=== PATIENT | female | born 1985 | race Caucasian/White ===

== ENCOUNTER 2017-06-17 14:06 | Emergency (ER) | payer OTHER ==
[~2017-06-17] VITALS: Ht 154.9 cm; Wt 56.1 kg
[2017-06-17 14:16] VITALS: TEMP 36.5; Ht 154.9 cm; Wt 56.1 kg
--- NOTE | 2017-06-17 14:57 | DIAGNOSTIC IMAGING REPORT ---
CHEST ONE VIEW PORTABLE CLINICAL HISTORY: Pain, radiating to the abdomen. COMPARISON STUDY: No previous studies for comparison. FINDINGS: The cardiac and mediastinal contours are normal. There is no evidence of focal pulmonary consolidation. There is no evidence of failure. No pleural effusions are visualized.[ No free intraperitoneal air is visualized. A rounded opacity at the right lung base is felt to represent a nipple shadow. IMPRESSION: No active disease in the chest. Electronically signed by: Willis Veronica M.D. 06/17/2017 2:56 PM Dictated Date/Time: 06/17/2017 2:55 PM
--- NOTE | 2017-06-17 15:07 | EMERGENCY ROOM VISIT NOTE ---
History Report prepared by Yudelka: Rudy Wade Under the Supervision of: Dr. Asher Valverde D.O. First contact with patient: 14:56 Chief Complaint: ABDOMINAL PAIN Stated Complaint: ABDOMINAL PAIN History of Present Illness The patient is a 31 year old female who presents to the Emergency Room with complaints of constant sharp left sided abdominal pain that began this morning. The patient took Aspirin and Tylenol with minimal improvement. The patient denies any nausea, vomiting, urinary symptoms, fevers, and back pain. The patient has a surgical history of a partial hysterectomy in 2009. Source of History: patient Onset: prior to arrival Position: abdomen (LLQ) Symptom Intensity: minimal Quality: sharp Timing: constant Associated Symptoms: + abdominal pain, No fevers, No nausea, No vomiting, No urinary symptoms Review of Systems See HPI for pertinent positives & negatives. A total of 10 systems reviewed and were otherwise negative. Social History Smoking Status: Former Smoker Housing Status: other (lives in correctional facility) Current/Historical Medications No Active Prescriptions or Reported Meds Allergies Coded Allergies: No Known Allergies (Unverified , 06/17/17) Physical Exam Vital Signs Date Time Temp Pulse Resp B/P (MAP) Pulse Ox O2 Delivery O2 Flow Rate FiO2 06/17/17 16:00 72 20 101/76 99 Room Air 06/17/17 14:16 36.5 84 20 102/64 99 Room Air Physical Exam CONSTITUTIONAL/VITAL SIGNS: Reviewed / noted above. GENERAL: Non-toxic in appearance. INTEGUMENTARY: Warm, dry, and [place]. HEAD: Normocephalic. EYES: without scleral icterus or trauma. ENT/OROPHARYNX: clear and moist. LYMPHADENOPATHY/NECK: Is supple without lymphadenopathy or meningismus. RESPIRATORY: Lungs clear and equal. CARDIOVASCULAR: Regular rate and rhythm. GI/ABDOMEN: Soft and tender to palpation of LLQ. No organomegaly or pulsatile mass. No rebound or guarding. Normal bowel sounds. EXTREMITIES: Warm and well perfused. BACK: No CVA tenderness. NEUROLOGICAL: Intact without focal deficits. PSYCHIATRIC: normal affect. MUSCULOSKELETAL: Normally developed with good muscle tone. Medical Decision & Procedures ER Provider Diagnostic Interpretation: Radiology results as stated below per my review and radiologist interpretation: CHEST ONE VIEW PORTABLE CLINICAL HISTORY: Pain, radiating to the abdomen. COMPARISON STUDY: No previous studies for comparison. FINDINGS: The cardiac and mediastinal contours are normal. There is no evidence of focal pulmonary consolidation. There is no evidence of failure. No pleural effusions are visualized.[ No free intraperitoneal air is visualized. A rounded opacity at the right lung base is felt to represent a nipple shadow. IMPRESSION: No active disease in the chest. Electronically signed by: Willis Veronica M.D. 06/17/2017 2:56 PM Dictated Date/Time: 06/17/2017 2:[address] SCAN OF THE ABDOMEN AND PELVIS WITHOUT CONTRAST CLINICAL HISTORY: Left lower quadrant abdominal pain COMPARISON STUDY: No previous studies for comparison. TECHNIQUE: CT scan of the abdomen and pelvis was performed from the lung bases to the proximal femurs. Images are reviewed in the axial, sagittal, and coronal planes. IV contrast was not administered for this examination. A dose lowering technique was utilized adhering to the principles of ALARA. CT DOSE: 260.55 mGy.cm FINDINGS: Lower chest: There are mild basilar atelectatic changes. Liver: The unenhanced liver is normal in size, contour, and attenuation. There is no intrahepatic biliary ductal dilatation. Gallbladder: Unremarkable. Spleen: Normal in size and attenuation. Pancreas: Unremarkable. Adrenal glands: Unremarkable. Kidneys: There is a 2 mm nonobstructing left renal calculus. No ureteral or bladder calculi are visualized. Bowel: There are no transition zones to indicate bowel obstruction. There is mild fecal retention. There is no acute diverticulitis. There are no findings to indicate acute appendicitis Peritoneum: There is no intraperitoneal free air or abdominal ascites. Vasculature: The abdominal aorta is normal in course and caliber. Adenopathy: None. Pelvic viscera: Evaluation the pelvis is limited given the lack of intravenous and oral contrast. No pathologic pelvic masses are visualized. Skeletal structures: No destructive osseous lesions are seen. IMPRESSION: 1. 2 mm nonobstructing left renal calculus. No ureteral or bladder calculi identified 2. No evidence of bowel obstruction. No evidence of free air. 3. No evidence of acute diverticulitis. No evidence of acute appendicitis Electronically signed by: Willis Veronica M.D. 06/17/2017 4:01 PM Dictated Date/Time: 06/17/2017 3:56 PM Laboratory Results 06/17/17 15:20 Red Blood Count 4.31, Mean Corpuscular Volume 90.0, Mean Corpuscular Hemoglobin 30.6, Mean Corpuscular Hemoglobin Concent 34.0, Mean Platelet Volume 10.7, Neutrophils (%) (Auto) 72.3, Lymphocytes (%) (Auto) 23.3, Monocytes (%) (Auto) 3.6, Eosinophils (%) (Auto) 0.5, Basophils (%) (Auto) 0.1, Neutrophils # (Auto) 6.38, Lymphocytes # (Auto) 2.06, Monocytes # (Auto) 0.32, Eosinophils # (Auto) 0.04, Basophils # (Auto) 0.01 06/17/17 15:20 Test 06/17/17 15:20 06/17/17 15:49 White Blood Count 8.83 K/uL (4.8-10.8) Red Blood Count 4.31 M/uL (4.2-5.4) Hemoglobin 13.2 g/dL (12.0-16.0) Hematocrit 38.8 % (37-47) Mean Corpuscular Volume 90.0 fL (80-100) Mean Corpuscular Hemoglobin 30.6 pg (25-34) Mean Corpuscular Hemoglobin Concent 34.0 g/dl (32-36) Platelet Count 170 K/uL (130-400) Mean Platelet Volume 10.7 fL (7.4-10.4) Neutrophils (%) (Auto) 72.3 % Lymphocytes (%) (Auto) 23.3 % Monocytes (%) (Auto) 3.6 % Eosinophils (%) (Auto) 0.5 % Basophils (%) (Auto) 0.1 % Neutrophils # (Auto) 6.38 K/uL (1.4-6.5) Lymphocytes # (Auto) 2.06 K/uL (1.2-3.4) Monocytes # (Auto) 0.32 K/uL (0.11-0.59) Eosinophils # (Auto) 0.04 K/uL (0-0.5) Basophils # (Auto) 0.01 K/uL (0-0.2) RDW Standard Deviation 42.8 fL (36.4-46.3) RDW Coefficient of Variation 13.1 % (11.5-14.5) Immature Granulocyte % (Auto) 0.2 % Immature Granulocyte # (Auto) 0.02 K/uL (0.00-0.02) Prothrombin Time 10.4 SECONDS (9.0-12.0) Prothromb Time International Ratio 1.0 (0.9-1.1) Activated Partial Thromboplast Time 26.9 SECONDS (21.0-31.0) Partial Thromboplastin Ratio 1.0 Anion Gap 7.0 mmol/L (3-11) Est Creatinine Clear Calc Drug Dose 80.9 ml/min Estimated GFR () 121.1 Estimated GFR (Non- 104.5 BUN/Creatinine Ratio 17.4 (10-20) Calcium Level 9.1 mg/dl (8.5-10.1) Total Bilirubin 0.4 mg/dl (0.2-1) Direct Bilirubin 0.1 mg/dl (0-0.2) Aspartate Amino Transf (AST/SGOT) 63 U/L (15-37) Alanine Aminotransferase (ALT/SGPT) 183 U/L (12-78) Alkaline Phosphatase 69 U/L (45-117) Total Protein 8.3 gm/dl (6.4-8.2) Albumin 4.0 gm/dl (3.4-5.0) Lipase 260 U/L (73-393) Urine Color YELLOW Urine Appearance CLEAR (CLEAR) Urine pH 5.5 (4.5-7.5) Urine Specific [place] 1.015 (1.000-1.030) Urine Protein NEG (NEG) Urine Glucose (UA) NEG (NEG) Urine Ketones NEG (NEG) Urine Occult Blood NEG (NEG) Urine Nitrite NEG (NEG) Urine Bilirubin NEG (NEG) Urine Urobilinogen NEG (NEG) Urine Leukocyte Esterase NEG (NEG) Urine WBC (Auto) 1-5 /hpf (0-5) Urine RBC (Auto) 0-4 /hpf (0-4) Urine Hyaline Casts (Auto) 0 /lpf (0-5) Urine Epithelial Cells (Auto) 20-30 /lpf (0-5) Urine Bacteria (Auto) NEG (NEG) Urine Test NEG (NEG) Laboratory results as stated above per my review. ED Course 1456: Previous medical records were reviewed. The patient was evaluated in room B5. A complete history and physical examination was performed. 1640: On reevaluation, the patient is doing well. I discussed the results and findings with the patient. She verbalized agreement of the treatment plan. She was discharged home. Medical Decision Differential considered: pancreatitis, hepatitis, or acute cholecystitis, AAA, UTI, pyelonephritis, kidney stones, appendicitis, diverticulitis, shingles, bowel obstruction mesenteric ischemia, intussusception,hernia, ovarian torsion, ruptured ovarian cyst. This is a 31-year-old female who presents to the ED with a chief complaint of left lower quadrant abdominal discomfort. The patient states that she awoke this morning with the symptoms. She describes it as a continuous sharp pain. No nausea or vomiting or diarrhea. No fevers. No urinary symptoms. Patient reports history of hysterectomy 2010 her vital signs are normal. Her physical exam revealed tenderness of left lower quadrant. No significant CVA tenderness. CT scan abdomen and pelvis reveals a 2 mm left renal calculus that is nonobstructing. This is nothing cause for her symptoms. There is no other abnormalities noted. A CBC was normal, test is negative urine did not show infection, chest x-ray was negative for acute disease. Chemistry panel was unremarkable and lipase was negative. AST and ALTs are slightly elevated. The patient was told the results of the test. She is felt to be stable for discharge and outpatient follow-up. Medication Reconcilliation Current Medication List: was personally reviewed by me Blood Pressure Screening Patient's blood pressure: Normal blood pressure Blood pressure disposition: Did not require urgent referral Impression Primary Impression: LLQ abdominal pain Scribe Attestation The scribe's documentation has been prepared under my direction and personally reviewed by me in its entirety. I confirm that the note above accurately reflects all work, treatment, procedures, and medical decision making performed by me. Departure Information Dispostion Home / Self-Care Prescriptions No Active Prescriptions or Reported Meds Referrals No Doctor, Assigned (PCP) Patient Instructions [facility] Additional Instructions Test results today did not reveal a cause for your pain. Follow-up with your doctor for further care and evaluation in 1-2 days. Return to the emergency department for worsening or new symptoms or any concerns. You have been examined and treated today on an emergency basis only. This is not a substitute for, or an effort to provide, complete comprehensive medical care. It is impossible to recognize and treat all injuries or illnesses in a single emergency department visit. It is therefore important that you follow up closely with your doctor. Call as soon as possible for an appointment.
[2017-06-17 15:33] LABS: BASO % 0.1 %; BASO ABS # 0.01 K/uL (0-0.2); COMPLETE YES; EOS % 0.5 %; HEMATOCRIT 38.8 % (37-47); IG% 0.2 %; LYMPH % 23.3 %; LYMPH ABS # 2.06 K/uL (1.2-3.4); MEAN CORPUSCULAR HEMOGLOBIN 30.6 pg (25-34); MEAN PLATELET VOLUME 10.7 fL (7.4-10.4); MONO % 3.6 %; NEUT % 72.3 %; PLATELET COUNT 170 K/uL (130-400); RED BLOOD COUNT 4.31 M/uL (4.2-5.4); WHITE BLOOD COUNT 8.83 K/uL (4.8-10.8)
[2017-06-17 15:47] LABS: PROTHROMBIN TIME (PATIENT) 10.4 SECONDS (9.0-12.0)
--- NOTE | 2017-06-17 16:02 | DIAGNOSTIC IMAGING REPORT ---
CT SCAN OF THE ABDOMEN AND PELVIS WITHOUT CONTRAST CLINICAL HISTORY: Left lower quadrant abdominal pain COMPARISON STUDY: No previous studies for comparison. TECHNIQUE: CT scan of the abdomen and pelvis was performed from the lung bases to the proximal femurs. Images are reviewed in the axial, sagittal, and coronal planes. IV contrast was not administered for this examination. A dose lowering technique was utilized adhering to the principles of ALARA. CT DOSE: 260.55 mGy.cm FINDINGS: Lower chest: There are mild basilar atelectatic changes. Liver: The unenhanced liver is normal in size, contour, and attenuation. There is no intrahepatic biliary ductal dilatation. Gallbladder: Unremarkable. Spleen: Normal in size and attenuation. Pancreas: Unremarkable. Adrenal glands: Unremarkable. Kidneys: There is a 2 mm nonobstructing left renal calculus. No ureteral or bladder calculi are visualized. Bowel: There are no transition zones to indicate bowel obstruction. There is mild fecal retention. There is no acute diverticulitis. There are no findings to indicate acute appendicitis Peritoneum: There is no intraperitoneal free air or abdominal ascites. Vasculature: The abdominal aorta is normal in course and caliber. Adenopathy: None. Pelvic viscera: Evaluation the pelvis is limited given the lack of intravenous and oral contrast. No pathologic pelvic masses are visualized. Skeletal structures: No destructive osseous lesions are seen. IMPRESSION: 1. 2 mm nonobstructing left renal calculus. No ureteral or bladder calculi identified 2. No evidence of bowel obstruction. No evidence of free air. 3. No evidence of acute diverticulitis. No evidence of acute appendicitis Electronically signed by: Willis Veronica M.D. 06/17/2017 4:01 PM Dictated Date/Time: 06/17/2017 3:56 PM
[2017-06-17 16:03] LABS: URINE APPEARANCE CLEAR (CLEAR); URINE BILIRUBIN NEG (NEG); URINE COLOR YELLOW; URINE EPITHELIAL CELL AUTO 20-30 /lpf (0-5); URINE NITRITE NEG (NEG); URINE PH 5.5 (4.5-7.5); URINE SPECIFIC GRAVITY 1.015 (1.000-1.030); UROBILINOGEN NEG (NEG); ZZUR CULT IF INDIC CLEAN CATCH NO
[2017-06-17 16:06] LABS: MANUAL MICROSCOPIC REQUIRED? NO; REVIEW REQ? NO
[2017-06-17 16:22] LABS: BUN/CREATININE RATIO 17.4 (10-20); CALCIUM 9.1 mg/dl (8.5-10.1); CREATININE 0.76 mg/dl (0.60-1.20); POTASSIUM 4.1 mmol/L (3.5-5.1)
[2017-06-17 16:51] VITALS: BP 109/65; PULSE 84; O2SAT 98
== END 2017-06-17 16:54 | disposition home or self-care (01) ==
LOC: C.EDB 14:09
DX: R10.32 Left lower quadrant pain (principal); N20.0 Calculus of kidney; Z90.711 Acquired absence of uterus with remaining cervical stump; Z87.891 Personal history of nicotine dependence

== ENCOUNTER 2021-05-07 15:12 | Observation (INO) ==
[2021-05-07 15:57] LABS: Basophils # (auto) 0.01 K/uL (0-0.2); Basophils % (auto) 0.2 %; Eosinophils # (auto) 0.02 K/uL (0-0.5); Eosinophils % (auto) 0.5 %; Hematocrit (blood only) 40.6 % (37-47); Hemoglobin 13.9 g/dL (12.0-16.0); Lymphocytes # (auto) 1.85 K/uL (1.2-3.4); Lymphocytes % (auto) 41.7 %; Mean Corpuscular Hemoglobin 30.3 pg (25-34); Mean Corpuscular Hgb Conc 34.2 g/dL (32-36); Mean Corpuscular Volume 88.5 fL (80-100); Mean Platelet Volume 12.1 fL (7.4-10.4); Monocytes # (auto) 0.37 K/uL (0.11-0.59); Monocytes % (auto) 8.3 %; Neutrophils # (auto) 2.19 K/uL (1.4-6.5); Neutrophils % (auto) 49.3 %; Platelet Count 141 K/uL (130-400); RDW Coefficient of Variation 12.9 % (11.5-14.5); RDW Standard Deviation 41.9 fL (36.4-46.3); Red Blood Count 4.59 M/uL (4.2-5.4); White Blood Count 4.44 K/uL (4.8-10.8)
[2021-05-07 16:15] LABS: Albumin Level 3.9 gm/dl (3.4-5.0); BUN Creatinine Ratio 11.3 (10-20); Creatinine Clr Calc Pharmacy 85.7 ml/min; Est GFR (African American) 119.7 ml/min; Est GFR (Non-African American) 103.3 ml/min
[2021-05-07 16:18] LABS: Albumin Globulin Ratio 0.9 (0.9-2); Bilirubin,Total 0.4 mg/dl (0.2-1); Globulin 4.5 gm/dl (2.5-4.0); Total Protein 8.4 gm/dl (6.4-8.2)
--- NOTE | 2021-05-07 16:47 | Ultrasound Report ---
US gallbladder LIMITED ABDOMEN CLINICAL HISTORY: Right upper quadrant pain. COMPARISON: 05/04/2021 TECHNIQUE: Multiple grayscale and color images of the right upper quadrant of the abdomen. FINDINGS: Pancreas: The pancreas is within normal limits with no focal mass or peripancreatic fluid collection identified. Liver: The liver is homogeneous in echogenicity There is no evidence for a focal mass. There is no in trahepatic biliary duct dilatation. There is again evidence for focal fatty infiltration involving th e dome of the liver on the right measuring 2.2 x 1.3 x 1.1 cm. Gallbladder: The gallbladder is again distended with cholelithiasis. There is again no evidence for wall thickening or pericholecystic edema. However, there was a positive sonographic Ellsworth sign. Common Bile Duct: (CBD): It is normal in size measuring 3 mm. Inferior Vena Cava (IVC): The imaged IVC is patent. Right kidney: There is no evidence for hydronephrosis, calculus or gross renal mass. The kidney is n ormal in size. IMPRESSION: Compared to the previous examination from 3 days ago, there is again evidence for cholel ithiasis with no evidence for wall thickening or pericholecystic edema. However, there was reportedly a positive sonographic Ellsworth sign on the current study. The presence of early cholecystitis cannot be completely excluded and if indicated clinically, follow-up hepatobiliary scan would be helpful for further evaluation. ACT 112: Positive. There are findings on this exam that require communication between the performing entity and the patient following Patient Test Result Information Act ([place] Act 112) guidelines. Electronically signed by: Clifford Richards M.D. 05/07/2021 4:45 PM
[2021-05-07] MEDS ORDERED: MoRPHine SULFATE 4 MG/ML 1 ML CARP\\VIAL IV STA (17:04)
[2021-05-07] MEDS ORDERED: ONDANSETRON INJ 2 MG/ML 2 ML VIAL IV STA (17:04)
[2021-05-07] MEDS ORDERED: SODIUM CHLORIDE 0.9% 1000ML 1,000 ML IV ONE (17:04)
--- NOTE | 2021-05-07 17:10 | Emergency Department Note ---
History of Present Illness General Chief complaint: Abdominal Pain Stated complaint: GALLBLADDER GETTING WORSE Time Seen by Provider: 05/07/21 16:55 Source: patient Mode of arrival: ambulatory Limitations: no limitations History of Present Illness Maximum Pain Intensity: 10 This patient is a 35-year-old female comes in with right-sided abdominal pain she tells me she was recently diagnosed with gallbladder disease and is scheduled to see a surgeon in follow-up but not for another week or so. This been going on for about 4 days she has pain in her right abdomen in the upper abdomen. She has had some nausea and vomiting without blood or coffee grounds. She has had no diarrhea. She gets sick after eating she says now the pain radiates to her back and feels like it even goes down her legs. No numbness or weakness. She did have a temperature of 102 no dysuria or hematuria. Denies as she has had a hysterectomy. She is had the Covid vaccine x2 Home Medications Medication Instructions Recorded Confirmed Type No Known Home Medications 05/04/21 05/07/21 History Allergies Allergy/AdvReac Type Severity Reaction Status Date / Time acetaminophen [From Tylenol] Allergy Difficulty Unverified 05/07/21 17:55 Breathing bee venom protein (honey bee) AdvReac Swelling Unverified 05/07/21 17:55 of Lip/Tongue/Throat Past Med/Surg History Social History Smoking Status: Current every day smoker Preferred Language: Upper Sorbian Feels Safe at Home: Yes Immunizations: Past medical historyhysterectomy. . Denies diabetes Review of Systems A total of 10 systems reviewed and were otherwise negative Physical Exam Vital Signs Vital Signs - 24 hr 05/07/21 15:20 05/07/21 17:34 05/07/21 18:00 Temperature 36.4 C L Temperature Source Temporal Artery Scan Pulse Rate 84 61 Pulse Rate [Apical] 66 Pulse Rate from SpO2 Sensor 64 Respiratory Rate 19 18 16 Respiratory Effort / Characteristics Non-Labored Spontaneous Respiratory Depth Normal Blood Pressure 105/57 L 99/64 L Blood Pressure [Right Arm] 92/57 L Blood Pressure Mean 73 75 Blood Pressure Mean [Right Arm] 68 Pulse Oximetry 100 98 99 Oxygen Delivery Method Room Air Room Air Room Air Sepsis Recent Fever Within 48 Hours No Sepsis New/Unexplained Change in Mental Status N/A Sepsis Action Taken by Nursing No Action Required 05/07/21 18:30 05/07/21 19:00 Temperature Temperature Source Pulse Rate 63 74 Pulse Rate [Apical] Pulse Rate from SpO2 Sensor 65 66 Respiratory Rate 19 20 Respiratory Effort / Characteristics Respiratory Depth Blood Pressure 98/57 L Blood Pressure [Right Arm] Blood Pressure Mean 70 Blood Pressure Mean [Right Arm] Pulse Oximetry 88 L 100 Oxygen Delivery Method Sepsis Recent Fever Within 48 Hours Sepsis New/Unexplained Change in Mental Status Sepsis Action Taken by Nursing General: Well developed well nourished young female who appears uncomfortable but in no acute distress, breathing comfortably on room air. Normal speech HEENT: Normal cephalic atraumatic. Pupils are equal round and reactive to light. Extraocular movements are intact. Oropharynx is pink with moist mucous membranes. No swelling of the mouth lips or tongue. Neck: Supple with a midline trachea. No meningeal signs or stiffness, no JVD or bruits. No Stridor. Chest: Clear to auscultation bilaterally. No wheezes or rhonchi. No increased work of breathing. Heart: Regular rate and rhythm without murmurs or gallops. Abdomen: Soft, moderately tender in the right upper quadrant. Nondistended without rebound guarding or rigidity. Extremities: No cyanosis clubbing or edema. No calf tenderness or assymetry Spine/Back. Non tender to palpation. No CVA tenderness Skin: Good turgor without rashes. Neurologic exam: Cranial nerves two through 12 are intact. Motor and sensation are intact and symmetrical throughout. Course Administered Medications Hydromorphone HCl (Hydromorphone Inj 0.5 Mg/0.5 Ml Syr) 0.5 mg IV Q6H PRN PRN Reason: Pain Stop: 05/21/21 19:08 Last Admin: 05/07/21 19:12 Dose: 0.5 mg Documented by: [id number] Discontinued Medications Sodium Chloride (Nss 1000ml) 1,000 mls @ 999 mls/hr IV .Q1H1M ONE Stop: 05/07/21 18:04 Last Infusion: 05/07/21 18:35 Dose: 0 mls/hr Documented by: [id number] Admin: 05/07/21 17:34 Dose: 999 mls/hr Documented by: [id number] Morphine Sulfate (Morphine Sulfate 4 Mg/Ml 1 Ml Carp\Vial) 4 mg IV NOW STA Stop: 05/07/21 17:05 Last Admin: 05/07/21 17:24 Dose: 4 mg Documented by: [id number] Ondansetron HCl (Ondansetron Inj 2 Mg/Ml 2 Ml Vial) 4 mg IV NOW STA Stop: 05/07/21 17:05 Last Admin: 05/07/21 17:24 Dose: 4 mg Documented by: [id number] Medical Decision Making Differential Diagnosis Gallbladder disease, pancreatitis, cholecystitis, electrolyte or metabolic abnormality, Covid, , kidney stone Medical Records Attestation: I reviewed the patient's medical records. Home Medications Current Medication List: was personally reviewed by me Laboratory Data Attestation: I reviewed the patient's lab results. Result diagrams: 05/07/21 15:45 05/07/21 15:45 Lab Results 05/07/21 05/07/21 05/07/21 Range/Units 15:45 15:45 17:21 WBC 4.44 L (4.8-10.8) K/uL RBC 4.59 (4.2-5.4) M/uL Hgb 13.9 (12.0-16.0) g/dL Hct 40.6 (37-47) % MCV 88.5 (80-100) fL MCH 30.3 (25-34) pg MCHC 34.2 (32-36) g/dL RDW Std Deviation 41.9 (36.4-46.3) fL RDW Coeff of Anne 12.9 (11.5-14.5) % Plt Count 141 (130-400) K/uL MPV 12.1 H (7.4-10.4) fL Immature Gran % (Auto) 0.0 % Neut % (Auto) 49.3 % Lymph % (Auto) 41.7 % [place] % (Auto) 8.3 % Eos % (Auto) 0.5 % Baso % (Auto) 0.2 % Neut # (Auto) 2.19 (1.4-6.5) K/uL Lymph # (Auto) 1.85 (1.2-3.4) K/uL [place] # (Auto) 0.37 (0.11-0.59) K/uL Eos # (Auto) 0.02 (0-0.5) K/uL Baso # (Auto) 0.01 (0-0.2) K/uL Immature Gran # (Auto) 0.00 (0.00-0.02) K/uL Sodium 136 (136-145) mmol/L Potassium 4.0 (3.5-5.1) mmol/L Chloride 107 (98-107) mmol/L Carbon Dioxide 27 (21-32) mmol/L Anion Gap 2.0 L (3-11) BUN 8 (7-18) mg/dl Creatinine 0.75 (0.6-1.2) mg/dl Est Cr Clr Drug Dosing 85.7 ml/min Est GFR ( Amer) 119.7 ml/min Est GFR (Non-Af Amer) 103.3 ml/min BUN/Creatinine Ratio 11.3 (10-20) Glucose 93 (70-99) mg/dl Calcium 9.0 (8.5-10.1) mg/dl Total Bilirubin 0.4 (0.2-1) mg/dl AST 17 (15-37) U/L ALT 25 (12-78) U/L Alkaline Phosphatase 68 (45-117) U/L Total Protein 8.4 H (6.4-8.2) gm/dl Albumin 3.9 (3.4-5.0) gm/dl Globulin 4.5 H (2.5-4.0) gm/dl Albumin/Globulin Ratio 0.9 (0.9-2) Lipase 151 (73-393) U/L COVID-19 Eval Order Covid19 at [facility] SARS-CoV-2 (PCR) (Negative) 05/07/21 Range/Units 17:21 WBC (4.8-10.8) K/uL RBC (4.2-5.4) M/uL Hgb (12.0-16.0) g/dL Hct (37-47) % MCV (80-100) fL MCH (25-34) pg MCHC (32-36) g/dL RDW Std Deviation (36.4-46.3) fL RDW Coeff of Anne (11.5-14.5) % Plt Count (130-400) K/uL MPV (7.4-10.4) fL Immature Gran % (Auto) % Neut % (Auto) % Lymph % (Auto) % [place] % (Auto) % Eos % (Auto) % Baso % (Auto) % Neut # (Auto) (1.4-6.5) K/uL Lymph # (Auto) (1.2-3.4) K/uL [place] # (Auto) (0.11-0.59) K/uL Eos # (Auto) (0-0.5) K/uL Baso # (Auto) (0-0.2) K/uL Immature Gran # (Auto) (0.00-0.02) K/uL Sodium (136-145) mmol/L Potassium (3.5-5.1) mmol/L Chloride (98-107) mmol/L Carbon Dioxide (21-32) mmol/L Anion Gap (3-11) BUN (7-18) mg/dl Creatinine (0.6-1.2) mg/dl Est Cr Clr Drug Dosing ml/min Est GFR ( Amer) ml/min Est GFR (Non-Af Amer) ml/min BUN/Creatinine Ratio (10-20) Glucose (70-99) mg/dl Calcium (8.5-10.1) mg/dl Total Bilirubin (0.2-1) mg/dl AST (15-37) U/L ALT (12-78) U/L Alkaline Phosphatase (45-117) U/L Total Protein (6.4-8.2) gm/dl Albumin (3.4-5.0) gm/dl Globulin (2.5-4.0) gm/dl Albumin/Globulin Ratio (0.9-2) Lipase (73-393) U/L COVID-19 Eval Order SARS-CoV-2 (PCR) NEGATIVE (Negative) Imaging Data Radiologist's Impression: Gallbladder Ultrasound 05/07/21 15:38 US gallbladder LIMITED ABDOMEN CLINICAL HISTORY: Right upper quadrant pain. COMPARISON: 05/04/2021 TECHNIQUE: Multiple grayscale and color images of the right upper quadrant of the abdomen. FINDINGS: Pancreas: The pancreas is within normal limits with no focal mass or radha pancreatic fluid collection identified. Liver: The liver is homogeneous in echogenicity There is no evidence for a focal mass. There is no intrahepatic biliary duct dilatation. There is again evidence for focal fatty infiltration involving the dome of the liver on the right measuring 2.2 x 1.3 x 1.1 cm. Gallbladder: The gallbladder is again distended with cholelithiasis. There is again no evidence for wall thickening or pericholecystic edema. However, there was a positive sonographic Ellsworth sign. Common Bile Duct: (CBD): It is normal in size measuring 3 mm. Inferior Vena Cava (IVC): The imaged IVC is patent. Right kidney: There is no evidence for hydronephrosis, calculus or gross renal mass. The kidney is normal in size. IMPRESSION: Compared to the previous examination from 3 days ago, there is again evidence for cholelithiasis with no evidence for wall thickening or pericholecystic edema. However, there was reportedly a positive sonographic Ellsworth sign on the current study. The presence of early cholecystitis cannot be completely excluded and if indicated clinically, follow-up hepatobiliary scan would be helpful for further evaluation. ACT 112: Positive. There are findings on this exam that require communication between the performing entity and the patient following Patient Test Result Information Act ([place] Act 112) guidelines. Electronically signed by: Clifford Richards M.D. 05/07/2021 4:45 PM [facility] Narrative Patient returns with right upper quadrant abdominal pain she was diagnosed recently with gallstones. She appears uncomfortable. She was hydrated with IV normal saline and given morphine 4 mg IV and Zofran 4 mg IV. We did repeat her labs and she has no white count or elevation of her liver functions. She is not as she has had a hysterectomy. Ultrasound shows stones with a positive Ellsworth sign there is no thickening or pericholecystic fluid. I did consult Dr. Santos to see her in the emergency department from surgery. He does plan on admitting her and taking her to the operating room tomorrow for a dana cystectomy. I did Covid test her and it was negative. Impression & Plan Cholelithiasis, Acute cholecystitis due to biliary calculus, Lab test negative for COVID-19 virus, Hx of hysterectomy, total Discharge Plan Visit Data Chief Complaint: Abdominal Pain Stated Complaint: GALLBLADDER GETTING WORSE ED Provider: John German Discharge Problem: Cholelithiasis, Acute cholecystitis due to biliary calculus, Lab test negative for COVID-19 virus, Hx of hysterectomy, total Forms Stand Alone Forms: My [employer] Prescriptions Prescriptions: No Action No Known Home Medications RF: 0 Referrals Referrals: PCP,NO [Primary Care Provider] -
[2021-05-07] MEDS ORDERED: ONDANSETRON INJ 2 MG/ML 2 ML VIAL IV PRN (17:34)
--- NOTE | 2021-05-07 17:41 | Surgery Consultation ---
Date of Consultation May 07, 2021 Assessment & Plan (1) Cholelithiasis: see below (2) Acute cholecystitis due to biliary calculus: pt is a 35 yaer-old female who presents with 10 days history RUQ pain, U/S study- gallstone, IMP: acute cholecystitis, cholelithiasis plan, I recommend to admit pt to hospital overnight, to do laparoscopic cholecystectomy possible open or cholangiogram tomorrow, D/W benefits, risks and alternatives of the surgery, the risks - infection, bleeding, injury other organs, may need ERCP, incisional hernia, pt understood, she agrees with the plan, she signed informed consent, I answered all questions, IV fluid, iv antibiotic, control pain, repeat labs in morning, History of Present Illness Reason for Consultation: abdominal pain Requesting Physician: Clifford Richards MD Attending Physician: Aquiles Santos MD [facility] History of Present Illness History of Present Illness General Chief complaint: Abdominal Pain Stated complaint: GALLBLADDER GETTING WORSE Time Seen by Provider: 05/07/21 16:55 Source: patient Mode of arrival: ambulatory Limitations: no limitations History of Present Illness Maximum Pain Intensity: 10 This patient is a 35-year-old female comes in with right-sided abdominal pain she tells me she was recently diagnosed with gallbladder disease and is scheduled to see a surgeon in follow-up but not for another week or so. This been going on for about 4 days she has pain in her right abdomen in the upper abdomen. She has had some nausea and vomiting without blood or coffee grounds. She has had no diarrhea. She gets sick after eating she says now the pain radiates to her back and feels like it even goes down her legs. No numbness or weakness. She did have a temperature of 102 no dysuria or hematuria. Denies as she has had a hysterectomy. She is had the Covid vaccine x2 I ( Aquiles Santos MD FACS) got a call for consult acute abdominal pain, cholecystitis, I reviewed pt's H/P, labs, U/S study with pt, pt is still have RUQ pain, with nausea, no vomiting, no fever, Home Medications Medication Instructions Recorded Confirmed Type No Known Home Medications 05/04/21 05/04/21 History Allergies Allergy/AdvReac Type Severity Reaction Status Date / Time No Known Allergies Allergy Unverified 05/04/21 00:27 Past Med/Surg History Social History Smoking Status: Current every day smoker Preferred Language: Korean Feels Safe at Home: Yes Immunizations: Past medical historyhysterectomy. . Denies diabetes Review of Systems A total of 10 systems reviewed and were otherwise negative Allergies Allergy/AdvReac Type Severity Reaction Status Date / Time No Known Allergies Allergy Unverified 05/04/21 00:27 Home Medications Medication Instructions Recorded Confirmed Type No Known Home Medications 05/04/21 05/04/21 History Patient History Social History Smoking Status: Current every day smoker Preferred Language: Korean Feels Safe at Home: Yes Review of Systems Constitutional: as per Subjective / HPI Eyes: as per Subjective / HPI Respiratory: as per Subjective / HPI Cardiovascular: as per Subjective / HPI Gastrointestinal: gallstone Genitourinary: as per Subjective / HPI Musculoskeletal: as per Subjective / HPI Neurologic: as per Subjective / HPI Psychiatric: as per Subjective / HPI Endocrine: as per Subjective / HPI Physical Exam Constitutional: WD/WN, vitals as above Eyes: PERRL, conjunctivae normal, anicteric sclerae Neck: trachea midline, no thyromegaly Respiratory: normal respiratory effort, lungs clear to auscultation Cardiovascular: RRR, no murmur, no edema Gastrointestinal (Abdomen): soft, tenderness at RUQ, no rebound pain, no distend, BS + Musculoskeletal: no cyanosis or clubbing, extremities motor strength 5/5 Neurologic: patellar DTR's 2+ bilat, sensation intact Psychiatric: A+Ox3, euthymic affect Results & Data ([facility]) Vital Signs (Past 12 Hours) Vital Signs Temp Pulse Pulse Resp BP BP Pulse Ox 05/07/21 17:34 66 18 92/57 L 98 05/07/21 15:20 36.4 C L 84 19 105/57 L 100 Laboratory Results Abnormal lab results 05/07/21 05/07/21 Range/Units 15:45 15:45 WBC 4.44 L (4.8-10.8) K/uL MPV 12.1 H (7.4-10.4) fL Anion Gap 2.0 L (3-11) Total Protein 8.4 H (6.4-8.2) gm/dl Globulin 4.5 H (2.5-4.0) gm/dl Diagnostic Findings US gallbladder LIMITED ABDOMEN CLINICAL HISTORY: Right upper quadrant pain. COMPARISON: 05/04/2021 TECHNIQUE: Multiple grayscale and color images of the right upper quadrant of the abdomen. FINDINGS: Pancreas: The pancreas is within normal limits with no focal mass or peripancreatic fluid collection identified. Liver: The liver is homogeneous in echogenicity There is no evidence for a focal mass. There is no intrahepatic biliary duct dilatation. There is again evidence for focal fatty infiltration involving the dome of the liver on the right measuring 2.2 x 1.3 x 1.1 cm. Gallbladder: The gallbladder is again distended with cholelithiasis. There is again no evidence for wall thickening or pericholecystic edema. However, there was a positive sonographic Ellsworth sign. Common Bile Duct: (CBD): It is normal in size measuring 3 mm. Inferior Vena Cava (IVC): The imaged IVC is patent. Right kidney: There is no evidence for hydronephrosis, calculus or gross renal mass. The kidney is normal in size. IMPRESSION: Compared to the previous examination from 3 days ago, there is again evidence for cholelithiasis with no evidence for wall thickening or pericholecystic edema. However, there was reportedly a positive sonographic Ellsworth sign on the current study. The presence of early cholecystitis cannot be completely excluded and if indicated clinically, follow-up hepatobiliary scan would be helpful for further evaluation. (1) Cholelithiasis Biliary obstruction: without biliary obstruction Cholecystitis presence: without cholecystitis Cholelithiasis location: gallbladder Qualified Code(s): K80.20 - Calculus of gallbladder without cholecystitis without obstruction
[2021-05-07] MEDS: HYDROmorphone INJ 0.5 MG/0.5 ML SYR IV PRN (19:12)
[2021-05-07 20:25] LABS: Appearance Urine Clear (Clear); Bilirubin Urine Negative (Negative); Blood Urine Negative (Negative); Color Urine Yellow; Glucose Urine UA Negative (Negative); Ketones Urine Negative (Negative); Leukocyte Esterase Urine Negative (Negative); Nitrite Urine Negative (Negative); Protein Urine Negative (Negative); Specific Gravity Urine 1.007 (1.000-1.030); Urobilinogen Urine Negative (Negative)
[2021-05-07 22:30] LABS: Hematocrit (blood only) 34.6 % (37-47); Hemoglobin 11.7 g/dL (12.0-16.0); Mean Corpuscular Hemoglobin 29.8 pg (25-34); Mean Corpuscular Hgb Conc 33.8 g/dL (32-36); Mean Corpuscular Volume 88.3 fL (80-100); Mean Platelet Volume 11.7 fL (7.4-10.4); Platelet Count 114 K/uL (130-400); RDW Coefficient of Variation 12.9 % (11.5-14.5); RDW Standard Deviation 41.8 fL (36.4-46.3); Red Blood Count 3.92 M/uL (4.2-5.4); White Blood Count 3.38 K/uL (4.8-10.8)
[2021-05-07] MEDS: ceFAZolin 1000MG 1,000 MG/7.5 ML SYR IV SCH (22:34)
[2021-05-07 23:11] LABS: Eosinophils # (auto) 0.02 K/uL (0-0.5); Eosinophils % (auto) 0.6 %; Lymphocytes # (auto) 1.87 K/uL (1.2-3.4); Lymphocytes % (auto) 55.3 %; Monocytes # (auto) 0.29 K/uL (0.11-0.59); Monocytes % (auto) 8.6 %; Neutrophils % (auto) 35.5 %
[2021-05-07] MEDS: oxyCODONE/ACETAMINOPHEN 5mg/325mg TAB PO PRN (23:16)
[2021-05-07] MEDS: LACTATED RINGER'S 1,000 ML IV SCH (23:16)
[2021-05-08] MEDS: HYDROmorphone INJ 0.5 MG/0.5 ML SYR IV PRN ×4 (01:32→19:44)
[2021-05-08 05:52] LABS: Hematocrit (blood only) 33.9 % (37-47); Hemoglobin 11.2 g/dL (12.0-16.0); Mean Corpuscular Hemoglobin 29.2 pg (25-34); Mean Corpuscular Volume 88.3 fL (80-100); Mean Platelet Volume 11.7 fL (7.4-10.4); Platelet Count 111 K/uL (130-400); RDW Coefficient of Variation 12.9 % (11.5-14.5); RDW Standard Deviation 41.5 fL (36.4-46.3); Red Blood Count 3.84 M/uL (4.2-5.4); White Blood Count 3.44 K/uL (4.8-10.8)
[2021-05-08] MEDS: ceFAZolin 1000MG 1,000 MG/7.5 ML SYR IV SCH ×3 (06:02→21:45)
[2021-05-08 06:26] LABS: Eosinophils # (auto) 0.03 K/uL (0-0.5); Eosinophils % (auto) 0.9 %; Lymphocytes # (auto) 1.99 K/uL (1.2-3.4); Lymphocytes % (auto) 57.8 %; Monocytes # (auto) 0.19 K/uL (0.11-0.59); Monocytes % (auto) 5.5 %; Neutrophils # (auto) 1.23 K/uL (1.4-6.5); Neutrophils % (auto) 35.8 %
[2021-05-08 06:28] LABS: Albumin Globulin Ratio 0.9 (0.9-2); Albumin Level 2.9 gm/dl (3.4-5.0); BUN Creatinine Ratio 13.6 (10-20); Bilirubin,Total 0.3 mg/dl (0.2-1); Calcium 8.2 mg/dl (8.5-10.1); Est GFR (African American) 141.7 ml/min; Est GFR (Non-African American) 122.3 ml/min; Globulin 3.3 gm/dl (2.5-4.0); Potassium 3.3 mmol/L (3.5-5.1); Total Protein 6.2 gm/dl (6.4-8.2)
[2021-05-08] MEDS: LACTATED RINGER'S 1,000 ML IV SCH (11:48)
[2021-05-08] MEDS ORDERED: MIDAZOLAM HCL 1 MG/ML 2ML VIAL ONE (11:58)
[2021-05-08] MEDS ORDERED: LIDOCAINE 2% 2 ML VIAL/AMP(20MG/ML) INFIL ONE (11:58)
[2021-05-08] MEDS ORDERED: DEXAMETHASONE SOD INJ 4 MG/ML VIAL ONE (11:58)
[2021-05-08] MEDS ORDERED: NEOSTIGMINE METHYLSULFATE 1 MG/ML 10ML VIAL ONE (11:58)
[2021-05-08] MEDS ORDERED: PROPOFOL IV EMULSION 10 MG/ML 20 ML VIAL IV ONE (11:58)
[2021-05-08] MEDS ORDERED: fentaNYL citrate 100 MCG/2 ML VIAL ONE (11:58)
[2021-05-08] MEDS ORDERED: GLYCOPYRROLATE 0.2 MG/ML VIAL ONE ×2 (11:58→14:07)
[2021-05-08] MEDS ORDERED: ONDANSETRON INJ 2 MG/ML 2 ML VIAL ONE ×2 (11:58→14:07)
[2021-05-08] MEDS ORDERED: LARYING-O-JET KIT (LTA) ONE (11:59)
[2021-05-08] MEDS ORDERED: ROCURONIUM BROMIDE 10 MG/ML 5 ML VIAL IV ONE (11:59)
--- NOTE | 2021-05-08 12:19 | History & Physical Bridge Note ---
Date of Service May 08, 2021 History & Physical Bridge Note I have examined the patient, reviewed the History & Physical and in the interval since the performance of the History & Physical I have noted the following changes of clinical significance: no changes noted
--- NOTE | 2021-05-08 12:27 | Anesthesiology Consultation ---
Date of Service May 08, 2021 Assessment & Plan (1) Encounter for pre-operative examination: Chart Review Chart Review: Acceptable Risk for Surgery and Patient NOT seen in Pre Admission Testing Consults Requested none ASA ASA2 Proposed Anesthesia Anesthesia Type: General Risk / Benefits Reviewed With: PT / POA / Parent / Guardian, Accepts Plan and Informed Consent Obtained History Surgery Operation Date: 05/07/21 12:00 Proposed Procedures p Laparoscopic Cholecystectomy(Not Applicable) - Aquiles Santos MD Operation Date: 05/08/21 12:00 Proposed Procedures p Laparoscopic Cholecystectomy(Not Applicable) - Aquiles Santos MD Height/Weight Height: 5 ft 1 in Weight: 57.9 kg Allergies Allergy/AdvReac Type Severity Reaction Status Date / Time acetaminophen [From Tylenol] Allergy Difficulty Unverified 05/07/21 17:55 Breathing bee venom protein (honey bee) AdvReac Swelling Unverified 05/07/21 17:55 of Lip/Tongue/Throat Medications Home Medications Medication Instructions Recorded Confirmed Last Taken No Known Home Medications 05/04/21 05/07/21 Unknown Active Medications Generic Name Dose Route Start Last Admin Trade Name Freq PRN Reason Stop Dose Admin Hydromorphone HCl 0.5 mg 05/07/21 19:09 05/08/21 09:00 Hydromorphone Inj 0.5 Mg/0.5 Ml Syr IV 05/21/21 19:08 0.5 mg Q6H PRN Administration Pain Hydromorphone HCl 0.5 mg 05/07/21 21:46 05/08/21 01:32 Hydromorphone Inj 0.5 Mg/0.5 Ml Syr IV 05/21/21 21:45 0.5 mg Q6H PRN Administration Pain Lactated Ringer's 1,000 mls @ 80 mls/hr 05/07/21 21:46 05/08/21 11:48 Lr IV 06/06/21 21:45 80 mls/hr .[id number] ISADORA Administration Cefazolin Sodium 1,000 mg in 7.5 mls @ 2.5 mls/min 05/07/21 22:00 05/08/21 06:02 Ancef 1000mg IV 05/17/21 21:59 2.5 mls/min Q8H ISADORA Administration Oxycodone/Acetaminophen 1 tab 05/07/21 21:46 11/13/21 23:16 Oxycodone/Acetaminophen 5mg/325mg Tab PO 05/21/21 21:45 1 tab Q4H PRN Administration Pain NPO Date Last Intake of Fluids: 05/07/21 Time Last Intake of Fluids: 23:59 Date Last Intake of Solids: 05/07/21 Time Last Intake of Solids: 23:59 Past Medical History no significant PMH Exercise / Class Metabolic Activity II 4-5 Yardwork/Stairs/Walk up hill Negative for chest pain or shortness of breath. Past Surgical History hysterectomy x 3 Past Anesthesia History No Hx of Anesthesia Complications History of PONV No Hx of PONV and No Hx of Motion Sickness Social History Smoking Status: Current every day smoker tobacco type: cigarettes Smoking cigarettes per day: 1 pack Do You Dip or Chew Tobacco: No Hx Alcohol Use: No Hx Substance Use: No Review of Systems Patient denies active symptoms of GERD. Physical Exam Vital Signs Last Vital Signs Temp 36.8 C 05/08/21 07:36 Pulse 90 05/08/21 11:43 Resp 16 05/08/21 07:36 BP 105/54 L 05/08/21 11:43 Pulse Ox 96 05/08/21 07:36 Constitutional not obese ENMT Mouth: + poor dentition; no TMJ abnormality and oral opening not small Thyromental Distance: > or= 3.5 Finger Breadths Mallampati Class: III Mouth / Teeth: 1. missng 2. missng 3. missing Neck normal visual inspection; neck extension not limited Respiratory normal respiratory effort Auscultation: lungs clear to auscultation bilaterally Cardiovascular Rate/Rhythm: regular rate and regular rhythm Heart Sounds: no murmur Neurologic moves all extremities Psychiatric Orientation: alert and oriented x 3 Testing Laboratory Results 05/08/21 05:32 05/08/21 05:32 Urine Color Yellow 05/07/21 17:21 Urine Appearance Clear (Clear) 05/07/21 17:21 Urine pH 7.0 (4.5-7.5) 05/07/21 17:21 Ur Specific [place] 1.007 (1.000-1.030) 05/07/21 17:21 Urine Protein Negative (Negative) 05/07/21 17:21 Urine Glucose (UA) Negative (Negative) 05/07/21 17:21 Urine Ketones Negative (Negative) 05/07/21 17:21 Urine Nitrite Negative (Negative) 05/07/21 17:21 Ur Leukocyte Esterase Negative (Negative) 05/07/21 17:21
[2021-05-08] MEDS ORDERED: ATROPINE SULFATE 0.1 MG/ML 10ML SYR IV PRN (12:30)
[2021-05-08] MEDS ORDERED: ePHEDrine sulfate 50 MG/ML AMP IV PRN (12:30)
[2021-05-08] MEDS ORDERED: PROMETHAZINE HCL 12.5 MG in SODIUM CHLORIDE 0.9% 50 ML IV PRN (12:30)
[2021-05-08] MEDS ORDERED: ONDANSETRON INJ 2 MG/ML 2 ML VIAL IV PRN (12:30)
[2021-05-08] MEDS ORDERED: LIDOCAINE 1% LOCAL 20 ML VIAL ONE (13:24)
[2021-05-08] MEDS ORDERED: BACITRACIN OINT 15 GM TUBE ONE (13:24)
[2021-05-08] MEDS ORDERED: BUPIVACAINE 0.5 % 5 MG/1 ML MPF 30ML VIAL ONE (13:24)
[2021-05-08] MEDS ORDERED: SODIUM CHLORIDE 0.9% INJ 10 ML VIAL ONE ×2 (13:49→13:54)
[2021-05-08] MEDS ORDERED: ePHEDrine sulfate 50 MG/ML SYR ONE (14:07)
[2021-05-08] MEDS ORDERED: PHENYLEPHRINE 100MCG/ML 5ML SYR ONE (14:07)
--- NOTE | 2021-05-08 14:58 | Post Operative Brief Note ---
Immediate Post Op Note v1 Date of Surgery May 08, 2021 Pre & Post Diagnosis Operation Date: 05/07/21 12:00 <No data on this case meets the specified criteria> Operation Date: 05/08/21 12:00 Pre-Op Diagnosis: Acute cholecystitis , cholelithiasis Post-Op Diagnosis: Acute cholecystitis, cholelithiasis I identified the patient and participated in the time-out.: Yes Procedure Operation Date: 05/07/21 12:00 <No data on this case meets the specified criteria> Operation Date: 05/08/21 12:00 Actual Procedures p Laparoscopic Cholecystectomy(Not Applicable) - Aquiles Santos MD Surgeon Aquiles Santos MD Utility Bagger nuclear monitoring technician Estimated Blood Loss 20 Findings Consistent with Post-Op Diagnosis Fluids 1000ml Specimens gallbladder Anesthesia Type General Complications none Disposition Accompanied Patient To Recovery: Yes
[2021-05-08] MEDS: fentaNYL citrate 100 MCG/2 ML VIAL IV PRN ×2 (15:13→15:23)
[2021-05-08] MEDS: HYDROmorphone INJ 1 MG/ML SYRINGE IV PRN ×2 (15:35→15:40)
--- NOTE | 2021-05-08 16:08 | Anesthesiology Progress Note ---
Date of Service May 08, 2021 Anesthesia Post Procedure Vital Signs Vital Signs: Temp Pulse Pulse Pulse Resp BP BP 05/08/21 15:51 36.4 C L 05/08/21 15:40 78 16 94/62 L 05/08/21 15:30 78 16 106/61 05/08/21 15:20 75 16 101/62 05/08/21 15:10 36.5 C 84 16 106/60 05/08/21 11:43 90 05/08/21 07:36 36.8 C 59 L 16 05/07/21 23:02 36.7 C 78 16 05/07/21 22:46 36.7 C 69 16 05/07/21 22:30 69 16 100/65 05/07/21 22:00 63 21 90/60 L 05/07/21 21:30 61 23 05/07/21 21:00 84 13 96/52 L 05/07/21 20:30 63 13 05/07/21 20:00 67 20 05/07/21 19:30 70 25 H 05/07/21 19:00 74 20 98/57 L 05/07/21 18:30 63 19 05/07/21 18:00 61 16 99/64 L 05/07/21 17:34 66 18 BP Pulse Ox 05/08/21 15:51 05/08/21 15:40 99 05/08/21 15:30 99 05/08/21 15:20 98 05/08/21 15:10 100 05/08/21 11:43 105/54 L 05/08/21 07:36 80/42 L 96 05/07/21 23:02 85/52 L 96 05/07/21 22:46 93/60 L 96 05/07/21 22:30 99 05/07/21 22:00 99 05/07/21 21:30 95 05/07/21 21:00 98 05/07/21 20:30 97 05/07/21 20:00 94 05/07/21 19:30 05/07/21 19:00 100 05/07/21 18:30 88 L 05/07/21 18:00 99 05/07/21 17:34 92/57 L 98 Pain Intensity Abdomen: Pain Intensity: 9 Transfer of Care Handoff Completed per policy Notes Mental Status: alert / awake / arousable and participated in evaluation Patient Amnestic to Procedure: Yes Nausea / Vomiting: adequately controlled Pain: adequately controlled Airway Patency, RR, SpO2: stable & adequate BP & HR: stable & adequate Hydration State: stable & adequate Anesthetic Complications: no major complications apparent and Pt Satisfied with anesthetic care
[2021-05-08] MEDS: MoRPHine SULFATE 2 MG/ML CARP IV PRN ×2 (16:44→23:10)
--- NOTE | 2021-05-08 23:13 | Operative Report (OR) ---
DATE OF PROCEDURE: 05/08/2021 PREOPERATIVE DIAGNOSES: Acute cholecystitis, cholelithiasis. POSTOPERATIVE DIAGNOSES: Acute cholecystitis, cholelithiasis. OPERATION: Laparoscopic cholecystectomy. SURGEON: Aquiles Santos MD. ANESTHESIA: General. ESTIMATED BLOOD LOSS: About 20 mL. FINDINGS: Acute cholecystitis, cholelithiasis. COMPLICATIONS: None. INDICATIONS FOR PROCEDURE: This is a 35-year-old female who presented to the ED with acute abdominal pain and the patient had ultrasound diagnosis of acute cholecystitis, cholelithiasis. The patient w as admitted to the hospital overnight and I recommended to do laparoscopic cholecystectomy, possible open, possible cholangiogram. I did talk to the patient about the benefit, risk, alternate procedure . I indicated the risks may include, but not limited to, such as bleeding, infection, injury to othe r organs, bile leak, may need ERCP, incisional hernia. The patient understands. She signed informed consent and I answered all questions. DETAILS OF PROCEDURE: After we identified the patient and verified the procedure, we brought the pat ient to the OR, put the patient in the supine position. The patient received SCD on bilateral legs t o prevent DVT. Also, patient received 2 grams of Ancef IV for prophylactic antibiotic. The patient received general anesthesia without difficulty. The abdomen was prepped and draped in routine steril e fashion. After timeout, I injected the local anesthesia by using 1% lidocaine mixed with 0.5% Rob ginny just above the umbilicus. Then, I made a small incision just above the umbilicus, opened fascia , opened peritoneum. Under direct vision, put a Zeke trocar in, connected to CO2 to create pneumop eritoneum, flow rate at 6 liters per minute, pressure not more than 14 mmHg. Once we get a nice pneumoperitoneum, we put a camera in, looked around the abdomen showing normal fin ding on the liver; however, the gallbladder shows acute cholecystitis, gallbladder wall thickening, e yudith, distention. Once we confirmed the diagnosis, we put another two 5 mm trocars in the right upper quadrant and one 11 trocar in the epigastric area. Once all trocars in, we used the grasper to hold the base of gallbladder, put in the direction to the diaphragm, another grasper to hold the pouch of gallbladder, put a lateral to explore the triangle of Calot. The cystic duct was identified and mobilized. Then I put two 10 mm metal clips on the proximal cysti c duct, one on the distal cystic duct. I then used a scissor for transection of cystic duct; recheck ed, no bile leak, no active bleeding. Then, the cystic artery was identified and mobilized. I put t wo 10 mm metal clips on the proximal cystic artery and one on the distal cystic artery. Then I used a scissor for transection of cystic artery; rechecked, no active bleeding. Then, we used the Bovie t o take down gallbladder from the liver bed; rechecked, no active bleeding, no bile leak from liver be d. Then, we removed gallbladder through the catch bag. Then, we reinserted inserted the Zeke trocar in, connected to CO2 to create pneumoperitoneum, again looked around the abdomen, no active bleeding, no bile leak from the liver bed. Then, we removed al l trocars under direct vision. No active bleeding from the trocar site. Pneumoperitoneum was releas ed. Then I closed the umbilical incision fascial layer by using 0 Vicryl [id number] x2, closed subcutaneous layer by using 2-0 Vicryl interruptedly, closed skin by using 4-0 Vicryl continuous runn ing, closed the epigastric incision fascial layer by using 0 Vicryl [id number] x2, closed subcut aneous layer by using 2-0 Vicryl interruptedly, closed skin by using 4-0 Vicryl interruptedly, closed another two 5 mm trocar site of skin only by using 4-0 Vicryl. Then, we put the dressing on. The patient tolerated the procedure well. All instrument, needle and sponge counts were correct x2 a t the end of the case. The patient was transferred to recovery room in stable condition. The specim en was sent to pathology. After the procedure, I did talk to the patient about the OR finding and th e procedure we did, patient understands. Job ID: [id number]
[2021-05-09] MEDS: LACTATED RINGER'S 1,000 ML IV SCH ×2 (00:19→10:33)
[2021-05-09] MEDS: oxyCODONE/ACETAMINOPHEN 5mg/325mg TAB PO PRN (00:19)
[2021-05-09] MEDS: HYDROmorphone INJ 0.5 MG/0.5 ML SYR IV PRN ×2 (02:10→08:17)
[2021-05-09] MEDS: MoRPHine SULFATE 2 MG/ML CARP IV PRN (05:07)
[2021-05-09] MEDS: ceFAZolin 1000MG 1,000 MG/7.5 ML SYR IV SCH ×2 (05:07→13:32)
[2021-05-09 06:28] LABS: Hemoglobin 11.4 g/dL (12.0-16.0); Lymphocytes # (auto) 1.67 K/uL (1.2-3.4); Lymphocytes % (auto) 33.9 %; Mean Corpuscular Hemoglobin 29.5 pg (25-34); Mean Corpuscular Hgb Conc 33.5 g/dL (32-36); Mean Corpuscular Volume 88.1 fL (80-100); Mean Platelet Volume 11.7 fL (7.4-10.4); Monocytes # (auto) 0.27 K/uL (0.11-0.59); Monocytes % (auto) 5.5 %; Neutrophils # (auto) 2.99 K/uL (1.4-6.5); Neutrophils % (auto) 60.6 %; Platelet Count 108 K/uL (130-400); RDW Coefficient of Variation 12.8 % (11.5-14.5); RDW Standard Deviation 41.5 fL (36.4-46.3); Red Blood Count 3.86 M/uL (4.2-5.4); White Blood Count 4.93 K/uL (4.8-10.8)
[2021-05-09 07:02] LABS: Albumin Level 2.9 gm/dl (3.4-5.0); BUN Creatinine Ratio 7.6 (10-20); Calcium 8.4 mg/dl (8.5-10.1); Creatinine Clr Calc Pharmacy 110.8 ml/min; Est GFR (African American) 138.4 ml/min; Est GFR (Non-African American) 119.4 ml/min; Potassium 3.6 mmol/L (3.5-5.1)
[2021-05-09 07:05] LABS: Albumin Globulin Ratio 0.8 (0.9-2); Bilirubin,Total 0.4 mg/dl (0.2-1); Globulin 3.5 gm/dl (2.5-4.0); Total Protein 6.4 gm/dl (6.4-8.2)
[2021-05-09] MEDS ORDERED: oxyCODONE HCL IR 5 MG TAB (IMMEDIATE RELEASE) PO PRN (07:17)
--- NOTE | 2021-05-09 09:17 | Surgery Progress Note ---
Date of Service May 09, 2021 Assessment & Plan (1) Cholelithiasis: Plan: see below (2) Acute cholecystitis due to biliary calculus: Plan: pt is a 35 yaer-old female who presents with 10 days history RUQ pain, U/S study- gallstone, IMP: acute cholecystitis, cholelithiasis plan, I recommend to admit pt to hospital overnight, to do laparoscopic cholecystectomy possible open or cholangiogram tomorrow, D/W benefits, risks and alternatives of the surgery, the risks - infection, bleeding, injury other organs, may need ERCP, incisional hernia, pt understood, she agrees with the plan, she signed informed consent, I answered all questions, IV fluid, iv antibiotic, control pain, repeat labs in morning, 05/09/2021 9:16AM S/P lap dana, POD 1 doing fine, pt wants to go home today,the post op care instruction was given, F/U 2 weeks, Admission and Anticipated Discharge Date Admission Date: May 07, 2021 Subjective F/U S/P lap dana, POD 1 pt is doing fine, tolerated diet, no nausea, no vomiting,some pain on incision site Review of Systems Constitutional: as per Subjective / HPI Eyes: as per Subjective / HPI Respiratory: as per Subjective / HPI Cardiovascular: as per Subjective / HPI Gastrointestinal: gallstone Genitourinary: as per Subjective / HPI Musculoskeletal: as per Subjective / HPI Neurologic: as per Subjective / HPI Psychiatric: as per Subjective / HPI Endocrine: as per Subjective / HPI Physical Exam Constitutional: WD/WN, vitals as above Eyes: PERRL, conjunctivae normal, anicteric sclerae Neck: trachea midline, no thyromegaly Respiratory: normal respiratory effort, lungs clear to auscultation Cardiovascular: RRR, no murmur, no edema Gastrointestinal (Abdomen): soft, mild tenderness at incision site, no rebound pain, no distend, all incision intact, no redness, Musculoskeletal: no cyanosis or clubbing, extremities motor strength 5/5 Neurologic: patellar DTR's 2+ bilat, sensation intact Psychiatric: A+Ox3, euthymic affect Results & Data ([facility]) Vital Signs (Past 12 Hours) Vital Signs Temp Pulse Resp BP Pulse Ox 05/09/21 07:20 36.5 C 67 16 103/62 94 05/09/21 02:57 36.7 C 81 16 88/58 L 95 05/08/21 23:19 36.7 C 81 16 100/65 95 Laboratory Results Abnormal lab results 05/09/21 05/09/21 Range/Units 06:09 06:09 RBC 3.86 L (4.2-5.4) M/uL Hgb 11.4 L (12.0-16.0) g/dL Hct 34.0 L (37-47) % Plt Count 108 L (130-400) K/uL MPV 11.7 H (7.4-10.4) fL Chloride 108 H (98-107) mmol/L BUN 4 L (7-18) mg/dl Creatinine 0.58 L (0.6-1.2) mg/dl BUN/Creatinine Ratio 7.6 L (10-20) Glucose 101 H (70-99) mg/dl Calcium 8.4 L (8.5-10.1) mg/dl Albumin 2.9 L (3.4-5.0) gm/dl Albumin/Globulin Ratio 0.8 L (0.9-2) (1) Cholelithiasis Biliary obstruction: without biliary obstruction Cholecystitis presence: without cholecystitis Cholelithiasis location: gallbladder Qualified Code(s): K80.20 - Calculus of gallbladder without cholecystitis without obstruction
--- NOTE | 2021-05-10 07:11 | Discharge Summary (DS) ---
DATE OF ADMISSION: 05/07/2021. DATE OF DISCHARGE: 05/09/2021. ADMISSION DIAGNOSES: Acute cholecystitis, cholelithiasis. DISCHARGE DIAGNOSES: Acute cholecystitis, cholelithiasis. OPERATION: Laparoscopic cholecystectomy. SURGEON: Aquiles Santos MD. DETAILS OF DISCHARGE SUMMARY: This is a 35-year-old female who was admitted to the hospital for acut e cholecystitis, cholelithiasis and we took the patient to the OR, we did laparoscopic cholecystectom y and the patient tolerated the procedure well. The patient was transferred to recovery room in stab le condition, and later on transferred to regular floor. The patient tolerated diet. No nausea, no vomiting, no significant abdominal pain. PHYSICAL EXAMINATION: VITAL SIGNS: Temperature is 36.5, respiratory rate is 16, heart rate 67, blood pressure 103/62, O2 s aturation 94% on room air. GENERAL: The patient is alert, awake, oriented x3. HEENT: Within normal limitation. NEUROLOGIC: Intact. NECK: No JVD. CHEST: Bilateral lung sounds clear. HEART: Normal S1 and S2. No murmur. ABDOMEN: Soft, mild tenderness on the incision site. No rebound pain, no distention. All incisions intact. No redness. Bowel sounds positive. EXTREMITIES: No edema. The patient wanted to go home today. Gave the patient postop care instruction. I will follow up the patient in 2 weeks. The patient understands. Job ID: [id number]
== END 2021-05-09 15:57 | disposition home or self-care (01) ==
LOC: ED 15:12 → EDINP 15:12 → 3N 22:23